=== PATIENT | female | born 1935 | race Caucasian/White ===

== ENCOUNTER 2021-03-09 09:18 | Day surgery (SDCO) | payer MEDICARE, OTHER ==
[~2021-03-09] VITALS: Ht 160 cm; Wt 93.1 kg
[~2021-03-09 09:18] MED LIST: ACETAMINOPHEN325 MG PO; ASPIRIN325 MG PO; BENADRYL25 MG PO; CLARITIN10 MG PO; CLEOCIN300 MG PO; CLINDAMYCIN 15150 MG PO; CYMBALTA 30MG C30 MG PO; CYMBALTA20 MG PO; DIFLUCAN150 M1 PO; HCTZ12.5 MG PO; IMDUR 30MG TABL30 MG PO; KEFLEX500 MG PO; LISINOPRIL 10MG10 MG PO; LOTRISONE15 GM TOP; NORCO 5-325 TA1 EACH PO; NORVASC10 MG PO; OMEPRAZOLE20 MG PO; OXYBUTYNIN CHLOR5 MG PO; PREDNISONE 10MG10 MG PO; PRINIVIL20 MG PO; SILVADENE20 GM TOP; TRAMADOL HCL50 MG PO; UROCIT-K10 MEQ PO; VOLTAREN **OUT50 MG PO
[2021-03-09 10:15] LABS: BASOPHIL 0.6 % (0-2); EOSINOPHIL 7.8 % (0-7); HCT 39.2 % (37.0-47.0); HGB 12.6 g/dl (12.5-16.0); LYMPHOCYTE 23.2 % (15-48); MCHC 32.1 g/dL (32.0-36.0); MCV 93.3 fL (78.0-100.0); MONOCYTE 11.9 % (0-12); MPV 11.1 fL (6.0-9.5); NEUTROPHIL 56.1 % (41-80); NRBC 0; PLT 299 K/uL (150-400); RDW 14.7 % (11.5-14.0); WBC 13.8 K/uL (4.0-10.5)
[2021-03-09 10:47] LABS: BILIRUBIN - TOTAL 0.2 mg/dL (0.2-1.0); BUN/CREAT RATIO (CALC) 23.7 RATIO; CREATININE 0.59 mg/dL (0.51-0.95); GLOBULIN (CALCULATION) 3.6 g/dL; POTASSIUM 4.6 mmol/L (3.5-5.1); TOTAL PROTEIN 6.6 g/dL (6.4-8.2)
[2021-03-09 13:13] LABS: HCT 36.5 % (37.0-47.0); HGB 11.9 g/dl (12.5-16.0); MCH 30.4 pg (25.0-31.0); MCHC 32.6 g/dL (32.0-36.0); MCV 93.4 fL (78.0-100.0); MPV 11.1 fL (6.0-9.5); RBC 3.91 M/uL (4.20-5.40); RDW 14.6 % (11.5-14.0)
[2021-03-09 13:50] LABS: BILIRUBIN NEGATIVE (NEGATIVE); BLOOD NEGATIVE Ery/uL (NEGATIVE); CLARITY CLEAR (CLEAR); COLOR YELLOW (YELLOW); GLUCOSE (U) NORMAL (NORMAL); LEUKOCYTES 1+ Leu/uL (NEGATIVE); NITRITE POSITIVE (NEGATIVE); PROTEIN NEGATIVE (NEGATIVE); SPECIFIC GRAVITY >=1.030 (1.001-1.030); UROBILINOGEN 0.2 mg/dL (0.2-1.0); pH 5.5 (5.0-9.0)
[2021-03-09 14:10] LABS: BACTERIA 3+; URINARY RBC RARE; URINARY WBC 20-50
[2021-03-09] MEDS ORDERED: VOLTAREN **OUT50 MG PO (16:33)
[2021-03-09] MEDS ORDERED: NORCO 5-325 TA1 EACH PO (16:33)
[2021-03-09] MEDS ORDERED: ZOLOFT50 MG PO (16:34)
[2021-03-09] MEDS ORDERED: TESSALON PERLE100 MG PO (16:34)
[2021-03-09] MEDS ORDERED: COLACE100 MG PO (16:35)
[2021-03-09] MEDS ORDERED: LASIX20 MG PO (16:36)
[2021-03-09] MEDS ORDERED: FLONASE ALLER15.8 ML (16:36)
[2021-03-09] MEDS ORDERED: ALLEGRA ALLERG180 MG PO (16:37)
[2021-03-09] MEDS ORDERED: IMODIUM2 MG PO (16:37)
[2021-03-09] MEDS ORDERED: ALIGN4 MG PO (16:38)
[2021-03-10 05:54] LABS: BASOPHIL 0.5 % (0-2); EOSINOPHIL 7.9 % (0-7); HCT 33.1 % (37.0-47.0); HGB 10.8 g/dl (12.5-16.0); LYMPHOCYTE 21.4 % (15-48); MCH 30.5 pg (25.0-31.0); MCHC 32.6 g/dL (32.0-36.0); MCV 93.5 fL (78.0-100.0); MONOCYTE 11.7 % (0-12); MPV 11.5 fL (6.0-9.5); NRBC 0; PLT 285 K/uL (150-400); RBC 3.54 M/uL (4.20-5.40); RDW 14.8 % (11.5-14.0); WBC 14.1 K/uL (4.0-10.5)
[2021-03-10 06:14] LABS: ALBUMIN 2.7 g/dL (3.4-5.0); BILIRUBIN - TOTAL 0.4 mg/dL (0.2-1.0); BUN/CREAT RATIO (CALC) 16.7 RATIO; CREATININE 0.6 mg/dL (0.51-0.95); GLOBULIN (CALCULATION) 3.3 g/dL; POTASSIUM 4.3 mmol/L (3.5-5.1)
--- NOTE | 2021-03-10 12:09 | NUR ---
03/10/21 MS. Mesa lives alone. She is followed by [facility]. [facility] was notified via [facility] of admission. [facility] provides homemaking and bathing 2 times per week. Patient has a rollator. - Ms. Mesa had a fall on 03/09/21 sustaining a hematoma to the knee. She is requesting short term placement. [facility] denied. [facility] is reviewing.
[2021-03-10] MEDS ORDERED: ULTRAM50 MG PO (13:54)
[2021-03-10] MEDS ORDERED: NORCO 5-325 TA1 EACH PO (14:04)
[2021-03-10] MEDS ORDERED: LEVAQUIN500 MG PO (14:09)
--- NOTE | 2021-03-10 17:43 | NUR ---
PT GOING TO [facility] REPORT CALLED AND GIVEN TO FLOR SHELLEY. IV REMOVED PAPER WORK SENT WITH PATIENT. PT LEFT WITH FAMILY BY CAR.
== END 2021-03-10 17:45 ==
LOC: FER 09:18 → FMS 14:29
PROVIDERS: Emergency Medicine; Internal Medicine; ADMIT Internal Medicine
DX: S80.01XA Contusion of right knee, initial encounter (principal); N39.0 Urinary tract infection, site not specified; B96.89 Other specified bacterial agents as the cause of diseases classified elsewhere; I10 Essential (primary) hypertension; E11.9 Type 2 diabetes mellitus without complications; M15.9 Polyosteoarthritis, unspecified; K44.9 Diaphragmatic hernia without obstruction or gangrene; K58.9 Irritable bowel syndrome, unspecified; K21.9 Gastro-esophageal reflux disease without esophagitis; N32.81 Overactive bladder; M54.6 Pain in thoracic spine; M25.551 Pain in right hip; G89.29 Other chronic pain; M54.9 Dorsalgia, unspecified; E66.01 Morbid (severe) obesity due to excess calories; Z68.36 Body mass index [BMI] 36.0-36.9, adult; Z79.82 Long term (current) use of aspirin; Z79.899 Other long term (current) drug therapy; Z91.041 Radiographic dye allergy status; Z20.822 Contact with and (suspected) exposure to COVID-19; W01.0XXA Fall on same level from slipping, tripping and stumbling without subsequent striking against object, initial encounter
CPT/HCPCS: 36415; 70450; 72072; 72125; 73502; 73560; 80053; 81001; 85025; 87076; 87088; 87186; 97162; 97166; 97530-GP; 97535; G0378; J0696; J2270; U0002